=== PATIENT | female | born 1980 | race African-American/Black ===

== ENCOUNTER 2018-04-23 14:02 | Emergency (ER) | payer OTHER ==
[~2018-04-23] VITALS: Ht 154.9 cm; Wt 101.2 kg
== END 2018-04-23 17:02 | disposition home or self-care (01) ==
LOC: ER 14:02
DX: R42 Dizziness and giddiness (principal)

== ENCOUNTER 2018-07-03 12:14 | Emergency (ER) | payer OTHER ==
[~2018-07-03] VITALS: Ht 157.5 cm; Wt 93.0 kg
[2018-07-03] MEDS ORDERED: KETO10TA2 PO (17:26)
[2018-07-03] MEDS ORDERED: LEVSIN/SL0.125 MG PO (17:26)
[2018-07-03] MEDS ORDERED: CIPRO500 MG PO (17:26)
[2018-07-03] MEDS ORDERED: PEPCID AC20 MG PO (17:26)
== END 2018-07-03 19:27 | disposition home or self-care (01) ==
LOC: ER 12:14
DX: R10.11 Right upper quadrant pain (principal); N39.0 Urinary tract infection, site not specified

== ENCOUNTER 2019-07-24 09:16 | Emergency (ER) | payer OTHER ==
[~2019-07-24] VITALS: Ht 152.4 cm; Wt 96.6 kg
[~2019-07-24 09:16] MED LIST: CIPRO500 MG PO; KETO10TA2 PO; LEVSIN/SL0.125 MG PO; PEPCID AC20 MG PO
[2019-07-24] MEDS ORDERED: NORFLEX100MG PO (11:06)
[2019-07-24] MEDS ORDERED: KETOROLAC TROME10 MG PO (11:06)
== END 2019-07-24 11:10 | disposition home or self-care (01) ==
LOC: ER 09:16
DX: S13.4XXA Sprain of ligaments of cervical spine, initial encounter (principal); V49.9XXA Car occupant (driver) (passenger) injured in unspecified traffic accident, initial encounter; Y93.89 Activity, other specified; Y92.488 Other paved roadways as the place of occurrence of the external cause; Y99.8 Other external cause status

== ENCOUNTER 2019-08-13 18:21 | Emergency (ER) | payer OTHER ==
[~2019-08-13] VITALS: Ht 152.4 cm; Wt 95.3 kg
[~2019-08-13 18:21] MED LIST changes: +KETOROLAC TROME10 MG PO; +NORFLEX100MG PO
== END 2019-08-13 22:03 | disposition home or self-care (01) ==
LOC: ER 18:21
DX: H10.11 Acute atopic conjunctivitis, right eye (principal)

== ENCOUNTER 2019-10-31 23:07 | Emergency (ER) | payer OTHER ==
[~2019-10-31] VITALS: Ht 152.4 cm; Wt 98.4 kg
[2019-11-01] MEDS ORDERED: MOBIC15 MG PO (03:06)
[2019-11-01] MEDS ORDERED: NORFLEX100MG PO (03:06)
== END 2019-11-01 03:46 ==
LOC: ER 23:07
DX: M54.5 Low back pain (principal)

== ENCOUNTER 2021-02-05 16:26 | Emergency (ER) | payer OTHER ==
[~2021-02-05] VITALS: Ht 154.9 cm; Wt 104.8 kg
[~2021-02-05 16:26] MED LIST changes: +MOBIC15 MG PO
== END 2021-02-05 23:52 | disposition home or self-care (01) ==
LOC: ER 16:26
DX: U07.1 COVID-19 (principal); B34.9 Viral infection, unspecified

== ENCOUNTER 2021-02-14 11:00 | Emergency (ER) | payer OTHER ==
[~2021-02-14] VITALS: Ht 154.9 cm; Wt 106.1 kg
== END 2021-02-14 15:06 | disposition home or self-care (01) ==
LOC: ER 11:00
DX: M79.645 Pain in left finger(s) (principal); M77.8 Other enthesopathies, not elsewhere classified